=== PATIENT | female | born 1955 | race Caucasian/White ===

== ENCOUNTER 2020-09-07 12:21 | Outpatient (CLI) | payer OTHER, SELFPAY ==
--- NOTE | 2020-09-07 12:27 | ECG_ITS ---
Measurements Intervals [place] Rate: 78 P: 55 AR: 175 QRS: 45 QRSD: 72 T: 48 QT: 365 QTc: 417 Interpretive Statements SINUS RHYTHM BASELINE ARTIFACT- I, II, III, AVR, AVL, AVF NORMAL ECG Electronically Signed On 09-07-2020 12:48:19 CDT by Thomas Hernandez D.O.
[2020-09-07 13:02] LABS: Anion Gap 9 mmol/L (8-16); Blood Urea Nitrogen 13 mg/dL (7-17); Calcium 9.5 mg/dL (8.4-10.2); Carbon Dioxide 34 mmol/L (22-30); Chloride 98 mmol/L (98-107); Estimated Glomerular Filt Rate 56; Glucose 84 mg/dL (65-105); Potassium 3.6 mmol/L (3.4-5.0); Sodium 141 mmol/L (137-145)
== END 2020-09-07 12:22 | disposition home or self-care (01) ==
LOC: ANHSURGERY 12:27
PROVIDERS: Anesthesiology; PCP Internal Medicine; Visit Provider Obstetrics & Gynecology Gynecology
DX: Z01.818 Encounter for other preprocedural examination (principal); I10 Essential (primary) hypertension; Z79.899 Other long term (current) drug therapy
CPT/HCPCS: 36415; 80048; 93005

== ENCOUNTER 2020-09-09 02:01 | Outpatient (CLI) | payer OTHER, SELFPAY ==
[2020-09-09 18:25] LABS: SARS-CoV-2 RNA PCR Negative
== END 2020-09-09 02:02 | disposition home or self-care (01) ==
LOC: ANHCOVIDDT 02:01
PROVIDERS: PCP Internal Medicine; Visit Provider Obstetrics & Gynecology Gynecology
DX: Z01.812 Encounter for preprocedural laboratory examination (principal); Z20.828 Contact with and (suspected) exposure to other viral communicable diseases
CPT/HCPCS: 87635; C9803; U0003

== ENCOUNTER 2020-09-12 01:38 | Day surgery (SDC) | payer OTHER, SELFPAY ==
[2020-09-06 09:49] VITALS: BMI 20.8
--- NOTE | 2020-09-12 07:42 | P.HP_ITS ---
History of Present Illness History of Present Illness Consent: Risks, benefits, and alternatives have been discussed and questions answered. Patient agrees to proceed with procedure. Chief complaint: post menopausal bleeding, thick endometrium Narrative: Farrah Juarez is a 65 year old female with postmenopausal bleeding. Patient had missed her HRT x 1 dose and had 1 week of spotting. Pelivc u/s done showed thickened endometrium at 11 mm. Reviewed u/s findings and recommend to evaluate with hysteroscopy and D&C. Reviewed risks of infection, bleeding, perforation, and possible pathology. Agrees to proceed. FORMERLY [facility] Past Medical History Medical History (Updated 09/12/20 @ 08:12 by Ariadna Barillas MD) Abnormal uterine bleeding Crohn disease HTN (hypertension) Migraine DUSTIN (obstructive sleep apnea) Osteoporosis Sleep apnea Ulcerative colitis Surgical History Surgical History (Updated 09/12/20 @ 07:45 by Ariadna Barillas MD) History of elective x 2 S/P breast biopsy left fibroadenoma Social History Social History Smoking status: Never smoker Spiritual care concerns: No Meds Home Medications and Allergies Home Medications Medication Instructions Recorded Confirmed Type balsalazide 1,500 mg PO BID 09/06/20 09/06/20 History calcium carbonate [Calcium 600] 1,200 mg PO DAILY 09/06/20 09/06/20 History ergocalciferol (vitamin D2) 1,250 mcg PO WEEKLY 09/06/20 09/06/20 History [Vitamin D2] estradiol-norethindrone acet 1 tablet PO DAILY 09/06/20 09/06/20 History folic acid 1 mg PO DAILY 09/06/20 09/06/20 History irbesartan-hydrochlorothiazide 1 tablet PO DAILY 09/06/20 09/06/20 History multivitamin 1 tablet PO DAILY 09/06/20 09/06/20 History potassium gluconate 595 mg PO DAILY 09/06/20 09/06/20 History vedolizumab [Entyvio] 300 mg IV WEEKLY 09/06/20 09/06/20 History Allergies Allergy/AdvReac Type Severity Reaction Status Date / Time codeine Allergy Unknown HALLUCINATI Verified 09/06/20 09:51 ONS hydrocodone Allergy Unknown HALLUCINATI Verified 09/06/20 09:51 ONS morphine Allergy Unknown HALLUCINATIONS, Verified 09/06/20 09:51 VOMITIING lactose Allergy Gastrointestinal Verified 09/06/20 09:51 Upset, RECTAL BLEEDING levofloxacin Allergy SEVERE Verified 09/06/20 09:51 DIARRHEA Sulfa (Sulfonamide AdvReac Unknown ABD. Verified 09/06/20 09:51 Antibiotics) DISTENTION PERFUMES AdvReac Unknown TILLEY, SYNCOPE Uncoded 09/06/20 09:51 Exam Const: General: cooperative and no acute distress : External Female Exam: normal external appearance Speculum Exam - Vagina: normal appearance of the vagina Speculum Exam - Cervix: normal a ppearance of the cervix Bimanual exam- vagina & uterus: normal bimanual exam and uterine size normal Bimanual Exam- Adnexa, other: normal adnexae Assessment and Plan Assessment and plan (1) Post-menopausal bleeding: Code(s): N95.0 - Postmenopausal bleeding Status: Acute Assessment and Plan: plan to proceed with hysteroscopy and D&C
--- NOTE | 2020-09-12 08:07 | WPDANESEPPF ---
Anes - Initial Pre Proc Eval Procedure: Operation Date: 09/12/20 11:00 Proposed Procedures p Hysteroscopy, Dilation and Curettage - Ariadna Barillas MD Date/Time: 09/12/20 08:07 Surgeon: Ariadna Barillas MD Pre Op Diagnosis: post menopausal bleeding, thick endometrium Patient Data Age: 65 Gender: F Height: 1.71 m Weight: 61.21 kg Allergies Allergy/AdvReac Type Severity Reaction Status Date / Time codeine AdvReac Unknown HALLUCINATI Verified 09/12/20 09:30 ONS hydrocodone AdvReac Unknown HALLUCINATI Verified 09/12/20 09:30 ONS morphine AdvReac Unknown HALLUCINATIONS, Verified 09/12/20 09:30 VOMITIING Sulfa (Sulfonamide AdvReac Unknown ABD. Verified 09/12/20 09:13 Antibiotics) DISTENTION lactose AdvReac Gastrointestinal Verified 09/12/20 09:30 Upset, RECTAL BLEEDING levofloxacin AdvReac SEVERE Verified 09/12/20 09:30 DIARRHEA PERFUMES AdvReac Unknown TILLEY, SYNCOPE Uncoded 09/12/20 09:13 Home Medications Medication Instructions Recorded Confirmed Type balsalazide 1,500 mg PO BID 09/06/20 09/12/20 History calcium carbonate [Calcium 600] 1,200 mg PO DAILY 09/06/20 09/12/20 History ergocalciferol (vitamin D2) 1,250 mcg PO WEEKLY 09/06/20 09/12/20 History [Vitamin D2] estradiol-norethindrone acet 1 tablet PO DAILY 09/06/20 09/12/20 History folic acid 1 mg PO DAILY 09/06/20 09/12/20 History irbesartan-hydrochlorothiazide 1 tablet PO DAILY 09/06/20 09/12/20 History multivitamin 1 tablet PO DAILY 09/06/20 09/12/20 History potassium gluconate 595 mg PO DAILY 09/06/20 09/12/20 History vedolizumab [Entyvio] 300 mg IV WEEKLY 09/06/20 09/12/20 History Patient hx anesthesia problems: post op nausea/vomiting Family hx anesthesia problems: none PMFSH Past Medical History Medical History (Updated 09/12/20 @ 08:12 by Ariadna Barillas MD) Abnormal uterine bleeding Crohn disease HTN (hypertension) Migraine DUSTIN (obstructive sleep apnea) Osteoporosis Sleep apnea Ulcerative colitis Surgical History Surgical History (Updated 09/12/20 @ 07:45 by Ariadna Barillas MD) History of elective x 2 S/P breast biopsy left fibroadenoma Social History Social History Smoking status: Never smoker Spiritual care concerns: No Anes - Eval Final PreProcedure Day of Procedure 09/12/20 08:07 Patient weight: normal Heart: regular rate and rhythm Lungs: clear to auscultation and normal air movement Airway: Mallampati scale class II Neurological: alert and oriented Last oral intake: >/= 8 hours ASA classification: III Emergent: no Anesthetic plan: proceed Anesthesia type and monitoring: general GIVS and LMA Informed Consent: The patient's anesthetic plan and its attendant risks and benefits were discussed with the patient/family/POA. Questions were solicited and answers provided to the satisfaction of the patient/family/POA.
--- NOTE | 2020-09-12 08:12 | WPDHPUPDATE1 ---
History and Physical Update Update Date/Time: 09/12/20 08:12 History and Physical has been reviewed, including an updated exam of the patient. There are NO changes in the patient's condition. Risks, benefits, and alternatives have been discussed and questions answered. Patient agrees to proceed with procedure.
[2020-09-12 09:12] VITALS: BP 127/58; PULSE 75; RESP 20; TEMP 36.3; O2SAT 100
[2020-09-12] MEDS: LACTATED RINGERS 1,000 ML 30 ML IV CONT (09:37)
[2020-09-12] MEDS: ACETAMINOPHEN 500 MG TABLET 1000 MG PO (09:37)
--- NOTE | 2020-09-12 11:18 | SUR.OPER ---
2200ml ns in, 2200ms ns out. aware
--- NOTE | 2020-09-12 11:23 | PM.PROC ---
Procedure Note - Detailed Date of procedure: 09/12/20 Pre-op diagnosis: post menopausal bleeding, thick endometrium Post-op diagnosis: same Procedure performed: D&C hysteroscopy with myosure resection of polyp and fibroid Description of procedure: The patient was taken to the operating room and placed in the dorsal lithotomy position. She was prepped and draped in the usual sterile fashion. [place] speculum was placed in the vagina and the cervix grasped on the anterior lip with a tenaculum. The external and internal os are stenotic. The os Finders are used and able to enter the endometrial cavity. The cervix is then serially dilated with Hegar and the diagnostic hysteroscope placed. There was a polyp noted near the cervical endometrial junction on the patient's left lateral side wall. There is also a large fibroid filling the left portion of the endometrium and the remainder of the endometrium appears grossly normal. The MyoSure device is opened and placed. The polyp and fibroid are removed under direct visualization. Once these are removed the hysteroscope was removed and the medium sharp curette used to sharply curette the endometrium until a good uterine cry was noted in all areas. Fluid balance is good. All instruments are removed. The patient is awakened from anesthesia and taken to recovery in stable condition. Sponge instrument and needle counts are correct per the OR staff. Anesthesia: MAC and local Surgeon: Ariadna Barillas MD Estimated blood loss (mL): 5 Drains: No Packing: No Pathology: yes (endometrial shavings and curettings) Complications: No immediate complications Condition: stable Disposition: PACU Findings: stenotic cervix; polyp left lateral wall near cervix; large fibroid left side wall; otherwise grossly normal appearing endometrium
[2020-09-12 11:24] VITALS: BP 140/70; PULSE 64; O2SAT 97
[2020-09-12] MEDS: KETOROLAC 30 MG/ML VIAL (*BKC) IV PUSH (12:30)
[2020-09-12 12:31] VITALS: BP 156/72; PULSE 66; RESP 16
[2020-09-12 12:59] VITALS: BP 142/67; PULSE 65; RESP 14
== END 2020-09-12 13:10 | disposition home or self-care (01) ==
PROVIDERS: PCP Internal Medicine; Visit Provider Obstetrics & Gynecology Gynecology
PROC: 0U5B8ZZ Destruction of Endometrium, Via Natural or Artificial Opening Endoscopic (ICD-10-PCS; CPT 58563; principal; 2020-09-12 11:00)
DX: N95.0 Postmenopausal bleeding (principal); D25.9 Leiomyoma of uterus, unspecified; N84.0 Polyp of corpus uteri; I10 Essential (primary) hypertension; K50.90 Crohn's disease, unspecified, without complications; G47.33 Obstructive sleep apnea (adult) (pediatric); M81.0 Age-related osteoporosis without current pathological fracture; G47.30 Sleep apnea, unspecified
CPT/HCPCS: 58561; 88305; A9270; J1885; J2250; J2704; J3010; J7030; J7120